=== PATIENT | male | born 1970 | race Caucasian/White ===

== ENCOUNTER 2018-10-02 07:25 | Emergency (ER) | payer OTHER ==
[~2018-10-02] VITALS: Wt 80.0 kg
[~2018-10-02 07:25] MED LIST: IBUP200C11
[2018-10-02] MEDS ORDERED: ACETAMINOPHEN 500 MG TAB PO STA (07:49)
[2018-10-02] MEDS ORDERED: IBUPROFEN 800 MG TAB PO ONE (08:00)
[2018-10-02] MEDS ORDERED: IBUP-1542 PO (08:32)
[2018-10-02] MEDS ORDERED: PROM6.2515 PO (08:32)
[2018-10-02] MEDS ORDERED: DOXY100T20 PO (08:32)
[2018-10-02] MEDS ORDERED: ACET325T33 PO (08:32)
[2018-10-02 08:35] VITALS: BP 133/74; PULSE 76; RESP 18
--- NOTE | 2018-10-02 09:21 | ERD ---
ER Documentation Chief Complaint Chief Complaint SORE THROAT ,FLU HPI 47-year-old male presenting with sore throat and productive cough. Patient has had a fever for the last week. He states he has some burning in his eyes. Has not taken medications for symptoms today. Patient denies other medical problems. Denies pleuritic chest pain. NKDA. Surgical history is appendectomy. Social history denies ROS All systems reviewed and are negative except as per history of present illness. Medications Home Meds Active Scripts Doxycycline Hyclate* (Doxycycline Hyclate*) 100 Mg Tablet.dr, 100 MG PO BID for 10 Days, TAB Prov:SENIA PIERCE PA-C 10/02/18 Promethazine Hcl* (Promethazine Hcl* Syrup) 6.25 Mg/5 Ml Syrup, 6.25 MG PO Q6H PRN for COUGH, #100 ML Prov:SENIA PIERCE PA-C 10/02/18 Acetaminophen* (Tylenol*) 325 Mg Tablet, 2 TAB PO Q6 PRN for PAIN AND OR ELEVATED TEMP, #20 TAB Prov:SENIA PIERCE PA-C 10/02/18 Ibuprofen* (Motrin*) 600 Mg Tab, 600 MG PO Q6, #30 TAB Prov:SENIA PIERCE PA-C 10/02/18 Reported Medications Ibuprofen* (Advil*) 200 Mg Capsule 02/24/13 Allergies Allergies: Coded Allergies: No Known Allergy (Unverified , 02/24/13) PMhx/Soc Medical and Surgical Hx: pt denies Medical Hx History of Surgery: Yes (Hernia repair) Anesthesia Reaction: No Hx Alcohol Use: Yes (Occasional) Hx Substance Use: No Hx Tobacco Use: No Smoking Status: Never smoker FmHx Family History: No diabetes, No coronary disease, No other Physical Exam Vitals Vital Signs Date Temp Pulse Resp B/P (MAP) Pulse Ox O2 O2 Flow FiO2 Time Delivery Rate 10/02/18 99.6 07:59 10/02/18 99.6 07:59 10/02/18 100.1 99 18 152/61 99 07:27 (91) Physical Exam GENERAL: The patient is well-appearing, well-nourished, in no acute distress HEENT: Atraumatic. Conjunctivae are pink. Pupils equal, round, and reactive to light. There is no scleral icterus. Tympanic membranes clear bilaterally. Oropharynx clear. NECK: C-spine is soft and supple. There is no meningismus. There is no cervical lymphadenopathy. CHEST: Rhonchi heard in the right lower lung space with no wheezing. No retractions HEART: Regular rate and rhythm. No murmurs, clicks, rubs or gallops. Results 24 hrs Current Medications Medications Dose Sig/[place] Start Time Status Last (Trade) Ordered Route PRN Stop Time Admin Dose Reason Admin Ibuprofen 800 mg ONCE ONCE 10/02/18 DC 10/02/18 (Motrin) PO 08:00 07:59 10/02/18 08:01 1,000 mg ONCE STAT 10/02/18 DC 10/02/18 Acetaminophen PO 07:49 07:59 (Tylenol 10/02/18 07:50 Tab) Procedures/MDM DIAGNOSTIC IMAGING REPORT Patient: SLAVA ROJAS : 1970 Age: 47 Sex: M MR #: [id number] DOS: 10/02/18 0749 Ordering MD: BLANCA PIERCE PA-C Location: [facility] Room/Bed: PROCEDURE: XR Chest. CLINICAL INDICATION: Cough and fever TECHNIQUE: Single frontal view of the chest was obtained COMPARISON: CR CHEST 02/24/2013 FINDINGS: The heart and mediastinum are within normal limits. The lungs are clear. There is no pleural effusion or pneumothorax. RPTAT: AA IMPRESSION: No acute disease. ER Course: Ibuprofen and Tylenol given ED. Influenza negative. MDM: 47-year-old male presenting with fever. Patient breath sounds are concerning for possible early pneumonia and I will treat prophylactically regardless of x-ray results. I have low suspicion for meningitis or sepsis. Patient is discharged with stricter precautions and told to follow-up with primary care within 1-2 days for close evaluation. Patient is told if symptoms change or worsen to return immediately to the ER. All questions answered at discharge Departure Diagnosis: Primary Impression: Cough Additional Impression: Sore throat Condition: Stable Patient Instructions: Self-Care for Sore Throats, Cough, Chronic, Uncertain Cause, (Adult) Additional Instructions: FOLLOW UP WITH YOUR PRIMARY CARE PHYSICIAN TOMORROW.Return to this facility if you are not improving as expected. SENIA PIERCE PA-C Oct 02, 2018 09:21
== END 2018-10-02 08:39 | disposition home or self-care (01) ==
LOC: FTE 07:25
DX: J02.9 Acute pharyngitis, unspecified (principal); R05 Cough
CPT/HCPCS: 71045; 87400; Z7502; Z7610